=== PATIENT | male | born 1980 | race Caucasian/White ===

== ENCOUNTER 2020-04-15 18:28 | Emergency (ER) | payer BC, SELFPAY ==
--- NOTE | ~2020-04-15 | CT_ITS ---
EXAMINATION: CT abdomen pelvis wo con DATE: 04/15/2020 19:24 INDICATION: Nephrolithiasis presenting with left flank pain. TECHNIQUE: Computed tomography (CT) of the abdomen and pelvis was performed without intravenous contr ast. Automated exposure control and iterative reconstruction technique were employed. The dose-length product was 1117.94 mGy-cm. COMPARISON: None FINDINGS: Lung bases are clear. Heart size is normal. No pericardial or pleural effusion. Mild bilateral gyneco mastia. Diffuse hepatic steatosis with focal sparing along the gallbladder fossa. Gallbladder, spleen , pancreas and bilateral adrenal glands are normal. There are 3 nonobstructing stones at the upper po le of the right kidney, the largest measuring 2.0 cm. 1 mm nonobstructing stone at the periphery of t he lower pole of the left kidney. There is mild left hydronephrosis with mild perinephric and proxima l periureteral stranding but no evident ureteral stone. There is a 10 x 2 x 1 mm linear region of susanna cification extending horizontally across the midline of the dependent bladder which could represent a collection of tiny stones or less likely a single long linear stone. Bladder is otherwise normal. Kulwinder wels including the appendix are normal. There are few coarse calcifications within the normal sized p rostate. No free intraperitoneal gas or fluid. No pathologically enlarged abdominal or pelvic lymphad enopathy. Lower thoracic kyphosis with chronic mild anterior wedging at T9-T12. There are bridging os teophytes at multiple levels in the spine, consistent with diffuse idiopathic skeletal hyperostosis ( DISH). Grade 1 anterolisthesis L4 on L5 with associated mild disc height loss and severe bilateral fa cet osteoarthritis. IMPRESSION: 1. Bilateral nephrolithiasis and likely collection of tiny stones in the bladder one of which may be recently passed given the mild left hydronephrosis and mild left perinephric/periureteral stranding w ithout evident obstructing stone along the left ureter. Reviewed, dictated and finalized at location A. IMPRESSION: 1. Bilateral nephrolithiasis and likely collection of tiny stones in the bladde r one of which may be recently passed given the mild left hydronephrosis and mi ld left perinephric/periureteral stranding without evident obstructing stone al rsoi the left ureter.
[2020-04-15 18:40] VITALS: BP 138/91; PULSE 120; RESP 16; TEMP 36.3; O2SAT 99
--- NOTE | 2020-04-15 18:51 | ED.BACK ---
HPI - Back Pain/Injury General Chief Complaint: Urogenital-Male Stated Complaint: Left flank pain Time Seen by Provider: 04/15/20 18:37 Source: patient Mode of arrival: ambulatory Limitations: no limitations History of Present Illness HPI Narrative: This is a 39-year-old male that presents to the emergency department for left-sided flank pain since this morning. Reports history of kidney stones. Reports he has a [facility] Reports an episode of nausea and vomiting. Denies fever, dysuria or hematuria. Related Data Allergies Allergy/AdvReac Type Severity Reaction Status Date / Time No Known Allergies Allergy Verified 04/15/20 18:56 Review of Systems Review of Systems: Narrative: CONSTITUTIONAL: Denies fever GASTROINTESTINAL: Reports abdominal pain, nausea, vomiting. Denies diarrhea. GENITOURINARY: Denies dysuria or hematuria. All systems reviewed & are unremarkable except as noted in HPI and below PMFSH Past Medical History Medical History (Updated 04/15/20 @ 20:03 by Alejandra Krishna PA-C) History of kidney stones Surgical History Surgical History (Updated 04/15/20 @ 18:51 by Alejandra Krishna PA-C) History of lithotripsy Exam Narrative: Exam Narrative: GENERAL: Well-appearing, well-nourished, and in no acute distress. HEAD: Normocephalic, atraumatic. EYES: EOMI. CHEST: Clear to auscultation. No respiratory distress. No wheezes rales or rhonchi HEART: Regular rate and rhythm. No murmur heard. Normal peripheral pulses. ABDOMEN: Soft, nontender, nondistended, normal active bowel sounds. No CVA tenderness EXTREMITIES: Normal range of motion. No edema. SKIN: Warm, dry, no rash. NEURO: No focal deficits. Alert and oriented x3. PSYCH: Normal mood and affect Course Vital Signs Vital signs: Vital Signs Temperature 97.3 F L 04/15/20 18:40 Pulse Rate 120 H 04/15/20 18:40 Respiratory Rate 16 04/15/20 18:40 Blood Pressure 138/91 H 04/15/20 18:40 Pulse Oximetry 99 04/15/20 18:40 Temperature 97.3 F L 04/15/20 18:40 Pulse Rate 120 H 04/15/20 18:40 Respiratory Rate 16 04/15/20 18:40 Blood Pressure 138/91 H 04/15/20 18:40 Pulse Oximetry 99 04/15/20 18:40 MDM - Back Pain/Injury MDM Narrative Medical decision making narrative: Patient presents to the emergency department for left flank pain since this morning. He is afebrile and nontoxic-appearing. Mildly tachycardic upon arrival, this improved after IV fluids. CBC with leukocytosis to 15.5. Metabolic panel without acute findings. UA with red blood cells and white blood cells. This will go for a culture. CT of the abdomen pelvis shows bilateral nephrolithiasis and likely a collection of small stones in the bladder, 1 of which probably recently passed due to left hydronephrosis and mild left periureteral stranding. Patient will be sent home with urine strainer and given pain medication as needed. He will be started on oral antibiotics. He was instructed to follow-up with his urologist. Patient was given warnings to return to the ER Lab Data Attestation: I reviewed the patient's lab results. Result diagrams: 04/15/20 19:12 04/15/20 19:12 Labs: Lab Results 04/15/20 04/15/20 04/15/20 Range/Units 19:12 19:12 19:12 WBC 15.5 H (4.5-10.0) K/mm3 RBC 5.66 (4.6-6.20) M/mm3 Hgb 16.6 (14.0-18.0) g/dL Hct 49.6 (42.0-52.0) % MCV 87.6 (80-100) fl MCH 29.3 (26-34) pg MCHC 33.5 (32-36) g/dl RDW 12.9 (11.5-14.5) % Plt Count 287 (150-375) k/mm3 MPV 11.5 H (7.4-10.4) fl Immature Gran % (Auto) 0.3 (0-0.5) % Neut % (Auto) 78.2 H (45.5-73.1) % Lymph % (Auto) 15.6 L (18.3-44.2) % Cottle % (Auto) 5.2 (2.6-8.5) % Eos % (Auto) 0.1 (0-4.4) % Baso % (Auto) 0.6 (0.2-1.2) % Lymph # (Auto) 2.43 (0.9-3.2) K/mm3 Cottle # (Auto) 0.8 H (0.1-0.6) K/mm3 Eos # (Auto) 0.0 (0-0.3) K/mm3 Baso # (Auto) 0.1 (0.0-0.1)
[2020-04-15] MEDS: SODIUM CHLORIDE 0.9% IV 1,000 ML 999 ML IV CONT (19:21)
[2020-04-15 19:26] LABS: Basophils Absolute Auto 0.1 K/mm3 (0.0-0.1); Basophils Percent Auto 0.6 % (0.2-1.2); Eosinophils Percent Auto 0.1 % (0-4.4); Hematocrit 49.6 % (42.0-52.0); Hemoglobin 16.6 g/dL (14.0-18.0); Immature Granulocyte Absolute 0.05 K/mm3 (0.00-0.031); Immature Granulocyte Percent A 0.3 % (0-0.5); Lymphocytes Absolute Auto 2.43 K/mm3 (0.9-3.2); Lymphocytes Percent Auto 15.6 % (18.3-44.2); Mean Corpuscular HGB Conc 33.5 g/dl (32-36); Mean Corpuscular Hemoglobin 29.3 pg (26-34); Mean Corpuscular Volume 87.6 fl (80-100); Mean Platelet Volume 11.5 fl (7.4-10.4); Monocytes Absolute Auto 0.8 K/mm3 (0.1-0.6); Monocytes Percent Auto 5.2 % (2.6-8.5); Neutrophils Absolute Auto 12.2 K/mm3 (1.3-6.7); Neutrophils Percent Auto 78.2 % (45.5-73.1); Platelet Count Result 287 k/mm3 (150-375); Red Blood Count 5.66 M/mm3 (4.6-6.20); Red Cell Distribution Width 12.9 % (11.5-14.5); White Blood Count 15.5 K/mm3 (4.5-10.0)
[2020-04-15 19:31] LABS: Add Urine Microscopic? YES; Appearance Urine Clear (Clear); Bacteria Urine Trace /hpf; Bilirubin Urine Negative (Negative); Blood Urine 3+ (Negative); Color Urine Yellow (Yellow); Glucose Urine UA Negative (Negative); Ketones Urine Negative (Negative); Leukocyte Esterase Ur 2+ LEU/UL (Negative); Mucus Urine Rare /lpf; Nitrate Urine Negative (Negative); Protein Urine 2+ mg/dL (Negative); RBC Urine >75 /hpf (0-2); Specific Grav Ur 1.013 (1.001-1.035); Squamous Epithelial Cell Urine Rare /hpf (Few); Urobilinogen Urine Negative mg/dL (<2.0); WBC Urine 51-75 /hpf
[2020-04-15 19:34] LABS: Blood Urea Nitrogen 12 mg/dL (9-20); Carbon Dioxide 21 mmol/L (22-30); Chloride 105 mmol/L (98-107); Estimated CRCL calculation 130 ml/min; Estimated Glomerular Filt Rate > 60; Glucose 127 mg/dL (75-110); Potassium 4.1 mmol/L (3.4-5.0); Sodium 137 mmol/L (137-145)
[2020-04-15 20:38] VITALS: BP 131/87; PULSE 89; RESP 16; TEMP 36.9; O2SAT 98
== END 2020-04-15 20:38 | disposition home or self-care (01) ==
PROVIDERS: Physician Assistant; Emergency Provider Emergency Medicine
DX: N13.2 Hydronephrosis with renal and ureteral calculous obstruction (principal); N30.01 Acute cystitis with hematuria; Z87.442 Personal history of urinary calculi
CPT/HCPCS: 36415; 74176; 80048; 81001; 85025; 87077; 87086; 87088; 87186; 96360; 99284; J7030